=== PATIENT | female | born 1945 | race Caucasian/White ===

== ENCOUNTER 2020-08-30 09:39 | Observation (INO) ==
[2020-08-30] MEDS ORDERED: PANTOPRAZOLE 40 MG VIAL IV STA (10:09)
[2020-08-30 10:18] LABS: Basophils # 0.1 10*3/uL (0.0-0.2); Basophils % 0.5 % (0.0-0.8); Eosinophils # 0.1 10*3/uL (0.0-0.87); Hemoglobin 13.2 GM/DL (12.0-16.0); Immature Granulocytes % 0.5 %; Immature Granulocytes Absolute 0.05 #; Lymphocytes # 1.5 10*3/uL (1.4-4.0); Lymphocytes % 13.6 % (21.3-54.2); Mean Corpuscular Volume 88.5 FL (87-102); Mean Platelet Volume 9.6 FL (9.6-12.0); Monocytes % 7.6 % (1.7-12.7); Neutrophils % 76.8 % (38.7-73.9); Platelet Count 353 T/CUMM (130-400); Red Blood Count 4.52 MC/CUMM (3.8-5.5); Red Cell Distribution Width 13.3 % (9.3-17.3)
[2020-08-30 10:23] LABS: INR 1.1; PT Patient Result 11.3 SECS (9.8-11.9)
[2020-08-30 10:33] LABS: Albumin 3.7 G/DL (3.4-5.0); Bilirubin,Total 0.7 MG/DL (0.2-1.0); Calcium 8.7 MG/DL (8.5-10.1); Osmolality,Calculated 273.4 MOS/KG (273-304); Potassium 3.3 MMOL/L (3.5-5.1); Total Protein 7.6 G/DL (6.4-8.3)
[2020-08-30 10:37] LABS: Platelet Estimate Normal
[2020-08-30 10:38] LABS: Anisocytosis 1+
[2020-08-30] MEDS ORDERED: GLUCAGON 1 MG VIAL IM PRN ×2 (15:38→16:07)
[2020-08-30] MEDS ORDERED: DEXTROSE 50% 25 GM/50 ML VIAL IV PRN ×2 (15:38→16:07)
[2020-08-30] MEDS ORDERED: PROCHLORPERAZINE 5 MG TABLET PO PRN (15:40)
[2020-08-30] MEDS ORDERED: hydrALAZINE 20 MG/1 ML VIAL IV PRN (16:07)
[2020-08-30] MEDS ORDERED: POTASSIUM CHLORIDE 20 MEQ/15 ML UDCUP PO ONE (16:10)
[2020-08-30] MEDS ORDERED: ENOXAPARIN 40 MG/0.4 ML SYRINGE SUBCUT SCH (18:00)
[2020-08-30] MEDS: VANCOMYCIN 50 MG/ML 60 ML/BOTTLE PO SCH (18:00)
[2020-08-30] MEDS: SODIUM CHLORIDE 0.9% 1,000 ML IV SCH (18:01)
[2020-08-30] MEDS: INSULIN REGULAR 100 UNIT/ML SUBCUT SCH ×2 (18:48→22:18)
[2020-08-30] MEDS: LABETALOL 100 MG TABLET PO SCH (22:15)
[2020-08-30] MEDS: NYSTATIN 500,000 UNIT/5 ML UDCUP PO SCH (22:15)
[2020-08-31] MEDS: VANCOMYCIN 50 MG/ML 60 ML/BOTTLE PO SCH ×4 (00:45→17:49)
[2020-08-31 08:03] LABS: Basophils % 0.4 % (0.0-0.8); Eosinophils # 0.2 10*3/uL (0.0-0.87); Eosinophils % 1.4 % (0.00-10.9); Hematocrit 36.6 VOL% (35.7-47.0); Hemoglobin 12.1 GM/DL (12.0-16.0); Immature Granulocytes % 0.4 %; Immature Granulocytes Absolute 0.05 #; Lymphocytes # 2.4 10*3/uL (1.4-4.0); Lymphocytes % 21.1 % (21.3-54.2); Mean Corpuscular HGB Conc 33.1 GM/DL (32-36); Mean Platelet Volume 9.2 FL (9.6-12.0); Monocytes % 9.1 % (1.7-12.7); Neutrophils % 67.6 % (38.7-73.9); Platelet Count 291 T/CUMM (130-400); Red Blood Count 4.16 MC/CUMM (3.8-5.5); Red Cell Distribution Width 13.5 % (9.3-17.3); White Blood Count 11.2 T/CUMM (4-12)
[2020-08-31 08:30] LABS: Calcium 8.3 MG/DL (8.5-10.1); Osmolality,Calculated 271.2 MOS/KG (273-304); Potassium 3.2 MMOL/L (3.5-5.1)
[2020-08-31] MEDS ORDERED: metroNIDAZOLE INJ 500 MG in PREMIX 1 EACH IV SCH ×2 (08:30→09:00)
[2020-08-31] MEDS ORDERED: MAGNESIUM SULF RIDER 2 GM in PREMIX 1 EACH IV ONE (09:00)
[2020-08-31] MEDS: PANTOPRAZOLE 40 MG TABLET PO SCH (09:49)
[2020-08-31] MEDS: amLODIPine 10 MG TABLET PO SCH (09:49)
[2020-08-31] MEDS: NYSTATIN 500,000 UNIT/5 ML UDCUP PO SCH ×2 (09:49→21:06)
[2020-08-31] MEDS: SIMVASTATIN 40 MG TABLET PO SCH (09:49)
[2020-08-31] MEDS: hydroCHLOROthiazide 12.5 MG CAPSULE PO SCH (09:49)
[2020-08-31] MEDS: LABETALOL 100 MG TABLET PO SCH ×3 (09:49→21:06)
[2020-08-31] MEDS: INSULIN REGULAR 100 UNIT/ML SUBCUT SCH ×5 (09:51→23:24)
[2020-08-31] MEDS: POLYETHYLENE GLYCOL POWDER 17 GM PACK PO SCH ×2 (16:25→21:05)
[2020-08-31] MEDS: SODIUM CHLORIDE 0.9% 1,000 ML IV SCH (17:48)
[2020-08-31] MEDS: POTASSIUM CHLORIDE 20 MEQ TABLET PO PRN ×3 (18:15→22:55)
[2020-09-01] MEDS: POTASSIUM CHLORIDE 20 MEQ TABLET PO PRN (00:35)
[2020-09-01] MEDS: VANCOMYCIN 50 MG/ML 60 ML/BOTTLE PO SCH ×3 (00:37→13:11)
[2020-09-01 05:38] LABS: Basophils # 0.1 10*3/uL (0.0-0.2); Basophils % 0.5 % (0.0-0.8); Eosinophils # 0.2 10*3/uL (0.0-0.87); Eosinophils % 1.2 % (0.00-10.9); Hematocrit 37.8 VOL% (35.7-47.0); Hemoglobin 12.6 GM/DL (12.0-16.0); Immature Granulocytes % 0.4 %; Immature Granulocytes Absolute 0.06 #; Lymphocytes # 2.6 10*3/uL (1.4-4.0); Lymphocytes % 16.9 % (21.3-54.2); Mean Corpuscular HGB Conc 33.3 GM/DL (32-36); Mean Corpuscular Volume 88.1 FL (87-102); Mean Platelet Volume 9.7 FL (9.6-12.0); Monocytes % 7.4 % (1.7-12.7); Neutrophils % 73.6 % (38.7-73.9); Platelet Count 309 T/CUMM (130-400); Red Blood Count 4.29 MC/CUMM (3.8-5.5); Red Cell Distribution Width 13.5 % (9.3-17.3); White Blood Count 15.4 T/CUMM (4-12)
[2020-09-01 05:59] LABS: Calcium 8.7 MG/DL (8.5-10.1); Osmolality,Calculated 271.2 MOS/KG (273-304); Potassium 3.8 MMOL/L (3.5-5.1)
[2020-09-01] MEDS: SODIUM CHLORIDE 0.9% 1,000 ML IV SCH (09:19)
[2020-09-01] MEDS: INSULIN REGULAR 100 UNIT/ML SUBCUT SCH ×2 (09:21→13:11)
[2020-09-01] MEDS: NYSTATIN 500,000 UNIT/5 ML UDCUP PO SCH (09:22)
[2020-09-01] MEDS: hydroCHLOROthiazide 12.5 MG CAPSULE PO SCH (09:22)
[2020-09-01] MEDS: amLODIPine 10 MG TABLET PO SCH (09:23)
[2020-09-01] MEDS: POLYETHYLENE GLYCOL POWDER 17 GM PACK PO SCH (09:24)
[2020-09-01] MEDS: PANTOPRAZOLE 40 MG TABLET PO SCH (09:24)
[2020-09-01] MEDS: LABETALOL 100 MG TABLET PO SCH (09:24)
[2020-09-01] MEDS: SIMVASTATIN 40 MG TABLET PO SCH (09:25)
[2020-09-01 11:58] VITALS: BP 143/57
== END 2020-09-01 14:35 | disposition home or self-care (01) ==
LOC: N.EDINP 09:39 → N.ED 09:39 → N.5E 13:44
PROVIDERS: ADMIT Internal Medicine; ATTEND Internal Medicine